=== PATIENT | female | born 1985 | race African-American/Black ===

== ENCOUNTER 2016-09-23 10:10 | Emergency (ER) | payer SELFPAY ==
[~2016-09-23] VITALS: Ht 167.6 cm; Wt 98.0 kg
[~2016-09-23 10:10] MED LIST: CYCL-36 PO; IBUP800 PO
[2016-09-23 10:13] VITALS: BP 134/79; PULSE 64; RESP 20; TEMP 98.4; O2SAT 99
--- NOTE | 2016-09-23 10:20 | PD ---
HPI Chief Complaint: Laceration/Skin Injury Time Seen by Provider: 10:20 Travel History International Travel<30 days: No Contact w/Intl Traveler<30days: No Traveled to known affect area: No History of Present Illness HPI 31 y/o female presents the emergency department with superficial laceration to the left dorsal lateral thumb over the DIP joint, as well as small superficial laceration to the distal left index finger. Patient also has a small burn to the dorsal left middle finger. She is here concerning the laceration to the left dorsal thumb, as it continues to ooze blood. Pain is minimal. There is no decrease in range of motion or strength or sensation. Patient is unsure of her last tetanus shot. This laceration occurred yesterday while she was cooking. She has no known drug allergies. PFSH Past Medical History Anemia: Yes Cardiovascular Problems: No Diminished Hearing: No GERD: Yes Hypertension: Yes (GESTATIONAL HYPERTENSION) Respiratory: No Thyroid Disease: No ?: Not : 1 Para: 1 Miscarriage: 0 Past Surgical History Gynecologic Surgery: Yes (iud placed/georgi) Pacemaker: No Tonsillectomy: Yes Other Surgery: Yes (SINUS SX) Social History Alcohol Use: Yes (occ wine) Tobacco Use: No Substance Use: No Allergies-Medications (Allergen,Severity, Reaction): Coded Allergies: No Known Allergies (Verified , 01/06/16) Reported Meds & Prescriptions Reported Meds & Active Scripts Active Reported Omeprazole 20 Mg Tab 20 Mg PO DAILY Hydrochlorothiazide 12.5 Mg Cap 12.5 Mg PO DAILY Review of Systems Except as stated in HPI: all other systems reviewed are Neg General / Constitutional: No: Fever Eyes: No: Visual changes HENT: No: Headaches Cardiovascular: No: Chest Pain or Discomfort Respiratory: No: Shortness of Breath Gastrointestinal: No: Abdominal Pain Genitourinary: No: Dysuria Musculoskeletal: No: Pain Skin: No Rash Neurologic: No: Weakness Psychiatric: No: Depression Endocrine: No: Polydipsia Hematologic/Lymphatic: No: Easy Bruising Physical Exam Narrative GENERAL: Patient is in no acute distress. SKIN: Warm and dry. Patient has a U-shaped flap-like laceration to the dorsal left thumb over the DIP joint which is well approximated and not bleeding currently. She also has a small 3 mL superficial lacerations to the distal left lateral index finger. Patient also has a small 0.5 cm oval burn to the base of the dorsal middle finger. HEAD: Atraumatic. Normocephalic. EYES: Pupils equal and round. No scleral icterus. No injection or drainage. ENT: No nasal bleeding or discharge. Mucous membranes pink and moist. Pharynx is clear. NECK: Trachea midline. Supple nontender. CARDIOVASCULAR: Regular rate and rhythm. RESPIRATORY: No accessory muscle use. Clear to auscultation. Breath sounds equal bilaterally. MUSCULOSKELETAL: Extremities without clubbing, cyanosis, or edema. No obvious deformities. NEUROLOGICAL: Awake and alert. No obvious cranial nerve deficits. Motor grossly within normal limits. Five out of 5 muscle strength in the arms and legs. Normal speech. PSYCHIATRIC: Appropriate mood and affect; insight and judgment normal. Data Data Last Documented VS Vital Signs Date Time Temp Pulse Resp B/P Pulse Ox O2 Delivery O2 Flow Rate FiO2 09/23/16 10:26 16 09/23/16 10:13 98.4 64 134/79 99 Room Air Orders Tetanus/Diphtheria Tox Adult (Tetanus/Di (09/23/16 10:30) MDM Medical Decision Making Medical Screen Exam Complete: Yes Emergency Medical Condition: Yes Differential Diagnosis Laceration. Burn. Need for tetanus. Narrative Course Wound is closed with Dermabond and dressing is placed for protection. Patient is given tetanus 0.5 mg IM. Wound care is discussed with the patient. Patient is to follow-up as needed. Diagnosis Primary Impression: Laceration of left thumb without complication Qualified Code: S61.012A - Laceration of left thumb without complication, initial encounter Additional Impression: Superficial burn of left middle finger Referrals: [facility] Patient Instructions: General Instructions, Tetanus Toxoid (By injection) Additional Instructions: Wound is closed with Dermabond and dressing is placed for protection. Patient is given tetanus 0.5 mg IM. Wound care is discussed with the patient. Patient is to follow-up as needed. Med/Other Pt SpecificInfo: No Meds Exist/No RX given Disposition: 01 DISCHARGE HOME Condition: Stable Armaan Eddy Sep 23, 2016 10:20
[2016-09-23] MEDS ORDERED: HYDR12.57 PO (10:27)
[2016-09-23] MEDS ORDERED: OMEP20TA PO (10:27)
[2016-09-23] MEDS ORDERED: TETANUS/DIPHTHERIA TOXOID ADULT 0.5 ML VIAL IM ONE (10:30)
== END 2016-09-23 10:53 | disposition home or self-care (01) ==
LOC: NEPD 10:10
DX: S61.012A Laceration without foreign body of left thumb without damage to nail, initial encounter (principal); T23.122A Burn of first degree of single left finger (nail) except thumb, initial encounter; D64.9 Anemia, unspecified; K21.9 Gastro-esophageal reflux disease without esophagitis; Y93.G3 Activity, cooking and baking; Z23 Encounter for immunization
CPT/HCPCS: 12001; 90471; 90714

== ENCOUNTER 2016-10-11 09:48 | Emergency (ER) | payer SELFPAY ==
[~2016-10-11] VITALS: Ht 167.6 cm; Wt 95.0 kg
[~2016-10-11 09:48] MED LIST changes: -CYCL-36 PO; +HYDR12.57 PO; -IBUP800 PO; +OMEP20TA PO
[2016-10-11 09:49] VITALS: BP 164/79; PULSE 82; RESP 20; TEMP 98.5; O2SAT 100
--- NOTE | 2016-10-11 10:24 | PD ---
HPI Chief Complaint: Cold / Flu Symptoms Time Seen by Provider: 10:24 Travel History International Travel<30 days: No Contact w/Intl Traveler<30days: No Traveled to known affect area: No History of Present Illness HPI 31-year-old female presents to the emergency Department with complaint of cough , nasal congestion 2 days. Yesterday she had development of chest tightness and shortness of breath. Reports she has history of pneumonia and is concerned that she may have pneumonia again. She denies fever, vomiting. Denies hemoptysis. Denies wheezing. Denies history of asthma. Says she did use her child's albuterol treatment last night with some relief of symptoms. Has also been taking Mucinex for symptom management. Has no other medical complaints. No known allergies. No other modifying factors or associated signs and symptoms. PFSH Past Medical History Anemia: Yes Cardiovascular Problems: Yes (HTN) Diminished Hearing: No GERD: Yes Hypertension: Yes Respiratory: No Thyroid Disease: No ?: Not : 1 Para: 1 Miscarriage: 0 Past Surgical History Gynecologic Surgery: Yes (iud placed/georgi) Pacemaker: No Tonsillectomy: Yes Other Surgery: Yes (SINUS SX) Social History Alcohol Use: Yes (occ wine) Tobacco Use: No Substance Use: No Allergies-Medications (Allergen,Severity, Reaction): Coded Allergies: No Known Allergies (Verified , 10/11/16) Reported Meds & Prescriptions Reported Meds & Active Scripts Active Proair Hfa 8.5 GM Inh (Albuterol Sulfate) 90 Mcg/Act Aer 2 Puff INH Q4-6H PRN 108 mcg/actuation Diflucan (Fluconazole) 150 Mg Tab 150 Mg PO ONCE Azithromycin 500 Mg Tab 500 Mg PO DAILY Reported Omeprazole 20 Mg Tab 20 Mg PO DAILY Hydrochlorothiazide 12.5 Mg Cap 12.5 Mg PO DAILY Review of Systems Except as stated in HPI: all other systems reviewed are Neg Physical Exam Narrative GENERAL: Well-nourished, well-developed female patient, in no acute distress; afebrile, nontoxic-appearing SKIN: Warm and dry. No rash. HEAD: Atraumatic. Normocephalic. EYES: Pupils equal and round. No scleral icterus. No injection or drainage. ENT: Mucosa pink and moist. No erythema or exudates. No uvular edema. No uvular , palatal, or tonsillar deviation. Airway patent. EARS: Bilateral pinnae and external canals appear within normal limits. Bilateral tympanic membranes without erythema, dullness or perforation. NECK: Trachea midline. No lymphadenopathy. CARDIOVASCULAR: Regular rate and rhythm. No murmur appreciated. RESPIRATORY: No accessory muscle use. Clear to auscultation. Breath sounds decreased to right middle, lower lobe. No retractions or tachypnea. Consistent dry cough. GASTROINTESTINAL: Abdomen soft, non-tender, nondistended. Hepatic and splenic margins not palpable. Bowel sounds are active 4 quadrants. MUSCULOSKELETAL: No obvious deformities. No clubbing. No cyanosis. No edema. NEUROLOGICAL: Awake and alert. Oriented 3. No obvious cranial nerve deficits. Motor grossly within normal limits. Normal speech. Moves all extremities. 5/5 strength to all extremities. PSYCHIATRIC: Appropriate mood and affect; insight and judgment normal. Data Data Last Documented VS Vital Signs Date Time Temp Pulse Resp B/P Pulse Ox O2 Delivery O2 Flow Rate FiO2 10/11/16 09:49 98.5 82 20 164/79 100 Room Air Orders Chest, Single Ap (10/11/16 10:13) Prednisone (Deltasone) (10/11/16 10:30) Albuterol Neb (Albuterol Neb) (10/11/16 10:30) MDM Medical Decision Making Medical Screen Exam Complete: Yes Emergency Medical Condition: Yes Medical Record Reviewed: Yes Differential Diagnosis Bronchitis, viral illness, pneumonia Narrative Course 31-year-old female with cough and cold symptoms 2 days. Patient is afebrile and nontoxic-appearing. She does have decreased lung sounds to the right lower lobes on auscultation of the lung sounds. She is in no acute distress and oxygen saturation is 100% on room air. No retractions or tachypnea. Patient does state she does have a history of pneumonia and her current symptoms are similar. Chest x-ray, albuterol nebulizer treatment, Deltasone ordered. 1100: Chest x-ray concludes mild right middle lobe infiltrate. I spoke with Dr. Marcano, my attending physician, and he agrees the patient is stable for outpatient treatment and follow-up. Azithromycin, albuterol inhaler prescribed for home. Instructed patient to follow up with primary care provider. Patient verbalizes understanding and agreement with treatment plan. Patient is medically cleared and stable for discharge. Discussed reasons to return to the emergency department. Patient agrees with treatment plan. The patients vital signs are stable and the patient is stable for outpatient follow-up and treatment. Patient discharged home, stable and in no acute distress. Diagnosis Primary Impression: Pneumonia Qualified Code: J18.1 - Pneumonia of right middle lobe due to infectious organism Referrals: Primary Care Physician Patient Instructions: Community Acquired Pneumonia (ED), General Instructions Departure Forms: Tests/Procedures, Work Release Enter return to work date: Oct 15, 2016 Additional Instructions: Antibiotics as prescribed and complete full course Ibuprofen or Tylenol as instructed and as needed for fever/pain [id number] cough and cold medications as directed and as needed for symptom management Get plenty of sleep/rest Drink plenty of fluids to prevent dehydration; popsicles and Gatorade Use an air humidifier/turn off ceiling fans Follow-up with primary care provider Return immediately to the emergency department with worsening of symptoms Med/Other Pt SpecificInfo: Prescription(s) given Scripts Albuterol 8.5 GM Inh (Proair Hfa 8.5 GM Inh)90 Mcg/Act Aer2 Puff INH Q4-6H PRN ( SOB/WHEEZING) #1 INHALER Ref 0 108 mcg/actuation Prov:Adela Castillo 10/11/16 Fluconazole (Diflucan)150 Mg [id number] Mg PO ONCE #1 TAB Ref 1 Prov:Adela Castillo 10/11/16 Azithromycin 500 Mg [id number] Mg PO DAILY #5 TAB Ref 0 Prov:Adela Castillo 10/11/16 Disposition: 01 DISCHARGE HOME Condition: Stable Adela Castillo Oct 11, 2016 10:24
[2016-10-11] MEDS ORDERED: RESP: ALBUTEROL 2.5 MG/3 ML NEB (SCH) INH ONE (10:30)
[2016-10-11] MEDS ORDERED: predniSONE 20 MG TAB PO ONE (10:30)
--- NOTE | 2016-10-11 10:52 | RADRPT ---
EXAM DATE/TIME: 10/11/2016 10:45 [facility] COMPARISON: CHEST PA & LAT, May 11, 2015, 13:17. INDICATIONS : Cough, short of breath, chest pain, cold symptoms MEDICAL HISTORY : Gastroesophageal reflux disease. high blood pressure SURGICAL HISTORY : None. ENCOUNTER: Initial ACUITY: 3 days PAIN SCORE: 8/10 LOCATION: Bilateral chest FINDINGS: A single view of the chest demonstrates a mild infiltrate in the right middle lobe. Otherwise, the ben ngs remain grossly clear and stable compared to the prior examination. The heart size is within roberto l limits. There are no pleural effusions or pulmonary edema. The bony structures are grossly intact.. CONCLUSION: Mild right middle lobe infiltrate. Mikey Moore MD on October 11, 2016 at 10:48 Board Certified Radiologist. This report was verified electronically.
[2016-10-11] MEDS ORDERED: DIFL150T PO (11:07)
[2016-10-11] MEDS ORDERED: ALBUAER3 INH (11:07)
[2016-10-11] MEDS ORDERED: AZIT500T2 PO (11:07)
== END 2016-10-11 11:42 | disposition home or self-care (01) ==
LOC: NEPK 09:48
DX: J18.1 Lobar pneumonia, unspecified organism (principal); I10 Essential (primary) hypertension
CPT/HCPCS: 71010; 94664; 99284; J7512; J7613

== ENCOUNTER 2016-10-15 20:03 | Observation (INO) | payer SELFPAY ==
[~2016-10-15] VITALS: Ht 167.6 cm; Wt 96.0 kg
[~2016-10-15 20:03] MED LIST changes: +ALBUAER3 INH; +AZIT500T2 PO; +DIFL150T PO
[2016-10-15 20:04] VITALS: BP 144/74; PULSE 75; RESP 16; TEMP 98.8; O2SAT 99
[2016-10-15] MEDS ORDERED: SODIUM CHLORIDE 0.9% FLUSH 10 ML FLUSH IVF PRN (23:45)
[2016-10-16] VITALS (8 sets, daily range): BP systolic 116–137; BP diastolic 68–80; PULSE 54–71; RESP 16–20; TEMP 97.7–98; O2SAT 66–100
--- NOTE | 2016-10-16 00:05 | PD ---
HPI Chief Complaint: Cold / Flu Symptoms Time Seen by Provider: 23:32 Travel History International Travel<30 days: No Contact w/Intl Traveler<30days: No Traveled to known affect area: No History of Present Illness HPI 31yo F with PMH of HTN presents to the ED with c/o cough, nasal congestion and chest pain that has not resolved since taking azithromycin. Pt describes the chest pain as a pressure on her chest. Feels that she cant really breath. Describes it as an elephant sitting on her chest. States her father of heart attack at age 46. States she had seen a firebrick layer helper before but has not had any stress test recently. Denies any fever, n/v, abdominal pain, focal weakness or numbness. Pt was seen on 10/11/16 and diagnosed with pneumonia and discharged with azithromycin, albuterol and fluconazole. Pt had CXR that showed mild right middle lobe infiltrate. PFSH Past Medical History Anemia: Yes Cardiovascular Problems: Yes (HTN) Diminished Hearing: No GERD: Yes Hypertension: Yes Respiratory: No Thyroid Disease: No Tetanus Vaccination: < 5 Years Influenza Vaccination: No ?: Not LMP: 04/2016 : 2 Para: 2 Miscarriage: 0 Past Surgical History Surgical History: No Previous Surgery Gynecologic Surgery: Yes (iud placed/georgi) Pacemaker: No Tonsillectomy: Yes Other Surgery: Yes (SINUS SX) Social History Alcohol Use: Yes (social) Tobacco Use: No Substance Use: No Allergies-Medications (Allergen,Severity, Reaction): Coded Allergies: No Known Allergies (Verified , 10/15/16) Reported Meds & Prescriptions Reported Meds & Active Scripts Active Proair Hfa 8.5 GM Inh (Albuterol Sulfate) 90 Mcg/Act Aer 2 Puff INH Q4-6H PRN 108 mcg/actuation Azithromycin 500 Mg Tab 500 Mg PO DAILY Reported Omeprazole 20 Mg Tab 20 Mg PO DAILY Hydrochlorothiazide 12.5 Mg Cap 12.5 Mg PO DAILY Review of Systems Except as stated in HPI: all other systems reviewed are Neg Physical Exam Narrative GEN: 31 yo F in mild distress. SKIN: Warm and dry. EYES: Pupils reactive and equal. ENT: Throat: Uvula midline. NECK: No JVD. Trachea midline. CV: S1, S2. Lungs: CTA B/L, equal breath sounds. Saturating at 100% on room air. Abd: soft, NT/ND. No rebound tenderness or guarding. EXT: No calf tenderness. No edema. Neuro: No focal neurologic deficits. Data Data Last Documented VS Vital Signs Date Time Temp Pulse Resp B/P Pulse Ox O2 Delivery O2 Flow Rate FiO2 10/16/16 01:20 56 20 137/80 100 Nasal Cannula 2 10/15/16 20:04 98.8 Orders Electrocardiogram (10/15/16 23:44) Basic Metabolic Panel (Bmp) (10/15/16 23:44) Ckmb (Isoenzyme) Profile (10/15/16 23:44) Complete Blood Count With Diff (10/15/16 23:44) D-Dimer (10/15/16:44) Magnesium (Mg) (10/15/16:44) Prothrombin Time / Inr (Pt) (10/15/16:44) Act Partial Throm Time (Ptt) (10/15/16:44) Troponin I (10/15/16 23:44) Chest, Single Ap (10/15/16 23:44) Ecg Monitoring (10/15/16:44) Bilateral Bp Monitoring (10/15/16 23:44) Iv Access Insert/Monitor (10/15/16 23:44) Oximetry (10/15/16 23:44) Oxygen Administration (10/15/16 23:44) Sodium Chloride 0.9% Flush (Ns Flush) (10/15/16 23:45) Guaifen-Cod 200-20 Mg/10ml Liq (Robituss (10/16/16 00:15) Blood Culture (10/16/16 00:05) Lactic Acid Sepsis Protocol (10/16/16 00:05) Bhcg Screen Qualitative (10/16/16 00:57) Ed Urine Pregnancytest Poc (10/16/16 01:15) Sodium Chlor 0.9% 1000 Ml Inj (Ns 1000 M (10/16/16 01:30) Ct Pulmonary Angiogram (10/16/16 01:22) Electrocardiogram (10/16/16 01:55) Troponin I (10/16/16 01:55) Iohexol 350 Inj (Omnipaque 350 Inj) (10/16/16 02:30) Admit Order (Ed Use Only) (10/16/16 02:47) Labs Laboratory Tests Test 10/15/16 10/16/16 23:50 00:25 White Blood Count 10.1 TH/MM3 Red Blood Count 4.79 MIL/MM3 Hemoglobin 12.4 GM/DL Hematocrit 35.1 % Mean Corpuscular Volume 73.4 FL Mean Corpuscular Hemoglobin 25.8 PG Mean Corpuscular Hemoglobin 35.2 % Concent Red Cell Distribution Width 14.3 % Platelet Count 322 TH/MM3 Mean Platelet Volume 9.0 FL Neutrophils (%) (Auto) 47.8 % Lymphocytes (%) (Auto) 39.8 % Monocytes (%) (Auto) 6.1 % Eosinophils (%) (Auto) 5.7 % Basophils (%) (Auto) 0.6 % Neutrophils # (Auto) 4.8 TH/MM3 Lymphocytes # (Auto) 4.0 TH/MM3 Monocytes # (Auto) 0.6 TH/MM3 Eosinophils # (Auto) 0.6 TH/MM3 Basophils # (Auto) 0.1 TH/MM3 CBC Comment DIFF FINAL Differential Comment Prothrombin Time 10.5 SEC Prothromb Time International 1.0 RATIO Ratio Activated Partial 29.4 SEC Thromboplast Time D-Dimer Quantitative (PE/DVT) 0.55 MG/L FEU Sodium Level 140 MEQ/L Potassium Level 4.0 MEQ/L Chloride Level 106 MEQ/L Carbon Dioxide Level 28.7 MEQ/L Anion Gap 5 MEQ/L Blood Urea Nitrogen 14 MG/DL Creatinine 0.63 MG/DL Estimat Glomerular Filtration 135 ML/MIN Rate Random Glucose 92 MG/DL Calcium Level 8.0 MG/DL Magnesium Level 1.9 MG/DL Total Creatine Kinase 75 U/L Troponin I LESS THAN 0.02 NG/ML Beta HCG, Qualitative LESS THAN 1 MIU/ML Lactic Acid Level 0.7 mmol/L [facility] Medical Decision Making Medical Screen Exam Complete: Yes Emergency Medical Condition: Yes Interpretation(s) EKG: Sinus bradycardia at 54bpm. Normal axis. TWI V2. Differential Diagnosis Pneumonia vs. Bronchitis vs. ACS vs. PE vs. URI Narrative Course 31yo F with coughing and congestion. Pt also has pressure like chest pain that is worst when she lays down. Labs reviewed, no leukocytosis. Troponin negative. D-dimer is elevated at 0.55, so will obtain CT angio. CXR negative for acute cardiopulmonary disease. Sign out to next team to follow up CT angio and if that is negative, to admit to chest pain center for serial EKG and cardiac enzyme. Diagnosis Primary Impression: Chest pain Qualified Code: R07.9 - Chest pain, unspecified type Admitting Information Admitting Physician Requests: Nieves Santamaria DO Oct 16, 2016 00:05
[2016-10-16] MEDS ORDERED: guaiFENesin/CODEINE SYRUP 200 MG/20 MG/10 ML CUP PO ONE (00:15)
--- NOTE | 2016-10-16 00:17 | RADRPT ---
EXAM DATE/TIME: 10/15/2016 23:51 [facility] COMPARISON: CHEST SINGLE AP, October 11, 2016, 10:45. INDICATIONS : Chest pain, shortness of breath, patient claims she was diagnosed on10/11/16 with pneumonia and feels s he has not gotten any better. MEDICAL HISTORY : None. SURGICAL HISTORY : None. ENCOUNTER: Subsequent ACUITY: 4 - 6 days PAIN SCORE: 0/10 LOCATION: Bilateral chest FINDINGS: A single view of the chest demonstrates the lungs to be symmetrically aerated without evidence of mas s, infiltrate or effusion. The cardiomediastinal contours are unremarkable. Osseous structures are intact. CONCLUSION: No evidence of acute cardiopulmonary disease. Alex Aldridge MD on October 16, 2016 at 0:15 Board Certified Radiologist. This report was verified electronically.
[2016-10-16 00:33] LABS: AUTOMATED NEUTROPHIL # 4.8 TH/MM3 (1.8-7.7); BASOPHIL # 0.1 TH/MM3 (0-0.2); BASOPHIL % 0.6 % (0.0-2.0); EOSINOPHIL # 0.6 TH/MM3 (0-0.4); EOSINOPHIL % 5.7 % (0.0-4.0); HEMATOCRIT 35.1 % (35.0-46.0); HEMO FLAGS DIFF FINAL; LYMPH % 39.8 % (9.0-44.0); MEAN CELL VOLUME 73.4 FL (80.0-100.0); MEAN CORPUSCULAR HEMOGLOBIN 25.8 PG (27.0-34.0); MEAN CORPUSCULAR HGB CONC 35.2 % (32.0-36.0); MONO % 6.1 % (0.0-8.0); NEUT % 47.8 % (16.0-70.0); PLATELET COUNT 322 TH/MM3 (150-450); RED BLOOD COUNT 4.79 MIL/MM3 (4.00-5.30); RED CELL DISTRIBUTION WIDTH 14.3 % (11.6-17.2); WHITE BLOOD COUNT 10.1 TH/MM3 (4.0-11.0)
[2016-10-16 00:38] LABS: ANION GAP 5 MEQ/L (5-15); BICARBONATE 28.7 MEQ/L (21.0-32.0); BLOOD UREA NITROGEN 14 MG/DL (7-18); CHLORIDE 106 MEQ/L (98-107); CREATINE KINASE 75 U/L (26-192); GLOMERULAR FILTRATION RATE 135 ML/MIN (>89); MAGNESIUM 1.9 MG/DL (1.5-2.5); SODIUM (NA) 140 MEQ/L (136-145)
[2016-10-16 00:39] LABS: APTT (PATIENT) 29.4 SEC (24.3-30.1); PROTHROMBIN TIME - PATIENT 10.5 SEC (9.8-11.6)
[2016-10-16] MEDS ORDERED: SODIUM CHLOR 0.9% 1000 ML INJ 1,000 ML IV ONE (01:30)
[2016-10-16] MEDS ORDERED: IOHEXOL 350 MG/ML 10 ML VIAL (for RAD DIAG) IV ONE (02:30)
--- NOTE | 2016-10-16 02:39 | RADRPT ---
EXAM DATE/TIME: 10/16/2016 02:13 [facility] COMPARISON: No previous studies available for comparison. INDICATIONS : Chest pain with elevated D-Dimer. IV CONTRAST: 70 cc Omnipaque 350 (iohexol) IV RADIATION DOSE: 13.38 CTDIvol (mGy) MEDICAL HISTORY : Cardiovascular disease. Hypertension. Gastroesophageal reflux disease. SURGICAL HISTORY : None. ENCOUNTER: Subsequent ACUITY: 4 - 6 days PAIN SCALE: 4/10 LOCATION: Bilateral chest TECHNIQUE: Volumetric scanning of the chest was performed using a pulmonary embolism protocol MIP images were re constructed. Using automated exposure control and adjustment of the mA and/or kV according to patien t size, radiation dose was kept as low as reasonably achievable to obtain optimal diagnostic quality images. DICOM format image data is available electronically for review and comparison. FINDINGS: PULMONARY ARTERIES: No filling defects are seen in the pulmonary arteries through the segmental level. LUNGS: There is no consolidation or pneumothorax . No concerning pulmonary nodule is visualized. PLEURAE: There is no pleural thickening or pleural effusion. MEDIASTINUM: There is good visualization of the great vessels of the middle mediastinum. No evidence of mediastin al or hilar adenopathy/mass. MUSCULOSKELETAL: Within normal limits for patient age. MISCELLANEOUS: The visualized upper abdominal organs demonstrate no acute abnormality. CONCLUSION: Normal CT pulmonary angiogram. No pulmonary embolus or other acute abnormality. Alex Aldridge MD on October 16, 2016 at 2:37 Board Certified Radiologist. This report was verified electronically.
--- NOTE | 2016-10-16 02:51 | PD ---
Physical Exam Date Seen by Provider: Oct 16, 2016 Time Seen by Provider: 02:49 Data Data Last Documented VS Vital Signs Date Time Temp Pulse Resp B/P Pulse Ox O2 Delivery O2 Flow Rate FiO2 10/16/16 01:20 56 20 137/80 100 Nasal Cannula 2 10/15/16 20:04 98.8 Orders Electrocardiogram (10/15/16 23:44) Basic Metabolic Panel (Bmp) (10/15/16 23:44) Ckmb (Isoenzyme) Profile (10/15/16 23:44) Complete Blood Count With Diff (10/15/16 23:44) D-Dimer (10/15/16 23:44) Magnesium (Mg) (10/15/16 23:44) Prothrombin Time / Inr (Pt) (10/15/16 23:44) Act Partial Throm Time (Ptt) (10/15/16 23:44) Troponin I (10/15/16 23:44) Chest, Single Ap (10/15/16 23:44) Ecg Monitoring (10/15/16 23:44) Bilateral Bp Monitoring (10/15/16 23:44) Iv Access Insert/Monitor (10/15/16 23:44) Oximetry (10/15/16 23:44) Oxygen Administration (10/15/16 23:44) Sodium Chloride 0.9% Flush (Ns Flush) (10/15/16 23:45) Guaifen-Cod 200-20 Mg/10ml Liq (Robituss (10/16/16 00:15) Blood Culture (10/16/16 00:05) Lactic Acid Sepsis Protocol (10/16/16 00:05) Bhcg Screen Qualitative (10/16/16 00:57) Ed Urine Pregnancytest Poc (10/16/16 01:15) Sodium Chlor 0.9% 1000 Ml Inj (Ns 1000 M (10/16/16 01:30) Ct Pulmonary Angiogram (10/16/16 01:22) Electrocardiogram (10/16/16 01:55) Troponin I (10/16/16 01:55) Iohexol 350 Inj (Omnipaque 350 Inj) (10/16/16 02:30) Admit Order (Ed Use Only) (10/16/16 02:47) Labs Laboratory Tests Test 10/15/16 10/16/16 23:50 00:25 White Blood Count 10.1 TH/MM3 Red Blood Count 4.79 MIL/MM3 Hemoglobin 12.4 GM/DL Hematocrit 35.1 % Mean Corpuscular Volume 73.4 FL Mean Corpuscular Hemoglobin 25.8 PG Mean Corpuscular Hemoglobin 35.2 % Concent Red Cell Distribution Width 14.3 % Platelet Count 322 TH/MM3 Mean Platelet Volume 9.0 FL Neutrophils (%) (Auto) 47.8 % Lymphocytes (%) (Auto) 39.8 % Monocytes (%) (Auto) 6.1 % Eosinophils (%) (Auto) 5.7 % Basophils (%) (Auto) 0.6 % Neutrophils # (Auto) 4.8 TH/MM3 Lymphocytes # (Auto) 4.0 TH/MM3 Monocytes # (Auto) 0.6 TH/MM3 Eosinophils # (Auto) 0.6 TH/MM3 Basophils # (Auto) 0.1 TH/MM3 CBC Comment DIFF FINAL Differential Comment Prothrombin Time 10.5 SEC Prothromb Time International 1.0 RATIO Ratio Activated Partial 29.4 SEC Thromboplast Time D-Dimer Quantitative (PE/DVT) 0.55 MG/L FEU Sodium Level 140 MEQ/L Potassium Level 4.0 MEQ/L Chloride Level 106 MEQ/L Carbon Dioxide Level 28.7 MEQ/L Anion Gap 5 MEQ/L Blood Urea Nitrogen 14 MG/DL Creatinine 0.63 MG/DL Estimat Glomerular Filtration 135 ML/MIN Rate Random Glucose 92 MG/DL Calcium Level 8.0 MG/DL Magnesium Level 1.9 MG/DL Total Creatine Kinase 75 U/L Troponin I LESS THAN 0.02 NG/ML Lactic Acid Level 0.7 mmol/L [facility] Medical Record Reviewed: Yes Supervised Visit with ODESSA: Yes Interpretation(s) CBC & BMP Diagram 10/15/16 23:50 D-dimer is mildly elevated. Troponin is negative. Last [address] Angiography 10/16/16 0122 Signed Impressions: Service Date/Time: Sunday, October 16, 2016 02:13 - CONCLUSION: Normal CT pulmonary angiogram. No pulmonary embolus or other acute abnormality. Alex Aldridge MD Chest X-Ray 10/15/16 [id number] Signed Impressions: Service Date/Time: Saturday, October 15, 2016 23:51 - CONCLUSION: No evidence of acute cardiopulmonary disease. Alex Aldridge MD Differential Diagnosis Differential diagnoses: Acute coronary syndrome, NM, PE, chest wall pain, pneumonia Narrative Course Patient's evaluation today revealed a positive d-dimer. CTA was negative for PE. With the patient's strong family history of early NM patient will be admitted to the chest pain center for further cardiac workup. We will repeat troponin and EKG at 3 hours post initial draw. This is chest pain Diagnosis Primary Impression: Chest pain Qualified Code: R07.9 - Chest pain, unspecified type Condition: Arpan Rodríguez Oct 16, 2016 02:51
[2016-10-16] MEDS ORDERED: ASPIRIN 81 MG CHEW TAB PO ONE (03:30)
[2016-10-16] MEDS ORDERED: SODIUM CHLORIDE 0.9% FLUSH 10 ML FLUSH IV FLUSH PRN (03:30)
[2016-10-16 07:50] LABS: CREATINE KINASE 57 U/L (26-192)
[2016-10-16] MEDS ORDERED: RESP: ALBUTEROL 2.5 MG/IPRATROPIUM 0.5 MG NEB (SCH) INH ONE (08:57)
[2016-10-16] MEDS ORDERED: PANTOPRAZOLE SOD 20 MG DELAYED RELEASE TAB PO SCH (09:00)
[2016-10-16] MEDS ORDERED: SODIUM CHLORIDE 0.9% FLUSH 10 ML FLUSH IV FLUSH SCH (09:00)
[2016-10-16] MEDS ORDERED: HYDROCHLOROTHIAZIDE 12.5 MG CAP PO SCH (09:00)
--- NOTE | 2016-10-16 09:49 | HHI.DCPOC ---
Discharge Care Plan Diagnosis: (1) Chest pain, atypical (2) Hypertension Goals to Promote Your Health * To prevent worsening of your condition and complications * To maintain your health at the optimal level Directions to Meet Your Goals Take your medications as prescribed Follow your dietary instruction Follow activity as directed Keep your appointments as scheduled Take your immunizations and boosters as scheduled If your symptoms worsen call your PCP, if no PCP go to Urgent Care Center or Emergency Room Smoking is Dangerous to Your Health. Avoid second hand smoke Call the 24-hour hour crisis hotline for domestic abuse at James Reyes Oct 16, 2016 09:49
--- NOTE | 2016-10-16 09:54 | PD.CARD.PN ---
Subjective Subjective Remarks CARDIOLOGY ATTENDING NOTE S: 31 YO woman who was seen in ED previously and diagnosed as pneumonia. Given Zpac but returns now with chest pain. This pain is constant, worse with coughing and motion, non radiating and very tender. Cough has been severe and not resolving. O: Obese Neck sore to touch at base but no mass and no bruits Chest very tender from neck down sternum, decreased BS but no RWR CV RSR no GRM Ext without CCE Lab negative for ACS EKG normal CXR and CT both negative A: CP secondary to cough with ongoing URI P: ETT not indicated and would be inappropriate with her SOB and cough Continue RX for URI with OP FU with PCP or Pulmonology Objective Vital Signs / I&O Vital Signs Date Time Temp Pulse Resp B/P Pulse Ox O2 Delivery O2 Flow Rate FiO2 10/16/16 09:17 96 21 10/16/16 07:46 98.0 62 16 116/71 100 10/16/16 06:19 99 Nasal Cannula 2.00 10/16/16 06:04 97.7 58 20 116/68 66 10/16/16 03:17 71 20 137/80 100 10/16/16 01:20 56 20 137/80 100 Nasal Cannula 2 10/16/16 00:15 100 Nasal Cannula 2 10/15/16 22:54 68 20 100 10/15/16 20:04 98.8 75 16 144/74 99 Room Air Laboratory Laboratory Tests Test 10/15/16 10/16/16 10/16/16 10/16/16 23:50 00:25 02:55 06:00 White Blood Count 10.1 TH/MM3 Red Blood Count 4.79 MIL/MM3 Hemoglobin 12.4 GM/DL Hematocrit 35.1 % Mean Corpuscular Volume 73.4 FL Mean Corpuscular Hemoglobin 25.8 PG Mean Corpuscular Hemoglobin 35.2 % Concent Red Cell Distribution Width 14.3 % Platelet Count 322 TH/MM3 Mean Platelet Volume 9.0 FL Neutrophils (%) (Auto) 47.8 % Lymphocytes (%) (Auto) 39.8 % Monocytes (%) (Auto) 6.1 % Eosinophils (%) (Auto) 5.7 % Basophils (%) (Auto) 0.6 % Neutrophils # (Auto) 4.8 TH/MM3 Lymphocytes # (Auto) 4.0 TH/MM3 Monocytes # (Auto) 0.6 TH/MM3 Eosinophils # (Auto) 0.6 TH/MM3 Basophils # (Auto) 0.1 TH/MM3 CBC Comment DIFF FINAL Differential Comment Prothrombin Time 10.5 SEC Prothromb Time International 1.0 RATIO Ratio Activated Partial 29.4 SEC Thromboplast Time D-Dimer Quantitative (PE/DVT) 0.55 MG/L FEU Sodium Level 140 MEQ/L Potassium Level 4.0 MEQ/L Chloride Level 106 MEQ/L Carbon Dioxide Level 28.7 MEQ/L Anion Gap 5 MEQ/L Blood Urea Nitrogen 14 MG/DL Creatinine 0.63 MG/DL Estimat Glomerular Filtration 135 ML/MIN Rate Random Glucose 92 MG/DL Calcium Level 8.0 MG/DL Magnesium Level 1.9 MG/DL Total Creatine Kinase 75 U/L 57 U/L Troponin I LESS THAN 0.02 LESS THAN 0.02 LESS THAN 0.02 NG/ML NG/ML NG/ML Beta HCG, Qualitative LESS THAN 1 MIU/ML Lactic Acid Level 0.7 mmol/L Ernesto Moran MD Oct 16, 2016 09:54
--- NOTE | 2016-10-16 10:13 | HHI.HP ---
[facility] Primary Care Physician Alex Delgado M.D. Chief Complaint Chest pain History of Present Illness This is a 31-year-old female that presents to the ED with history of recently having been diagnosed with pneumonia and taking Zithromax and albuterol inhaler with a complaint of chest discomfort. Patient states that she has been coughing for about a week and has had chest discomfort that same time. Describes a tightness. When she uses her son's nebulizer at home and does feel little better. She states the cough has improved after taking Zithromax in early little bit of productive mucus is occurring now. Denies fevers. She has had the cough really has not been short of breath. There've been no nausea or diaphoresis. Denies history of coronary disease. Patient is a nonsmoker. Review of Systems General: Patient denies fevers, chills recent, and recent travel HEENT: Patient denies headache, sore throat, difficulty swallowing. Cardiovascular: Has the chest discomfort as mentioned above. Denies sensation of heart beating rapidly or irregularly. No syncope. Denies diaphoresis. Respiratory: She has had a greenish color productive cough but states it has improved significantly since being on Zithromax. Denies shortness of breath or inspirational chest discomfort. Denies wheezing or hemoptysis. GI: Patient denies nausea, vomiting, diarrhea, abdominal pain, bloody stools. Musculoskeletal: Patient denies joint pain or edema. Denies calf pain or edema. Neurovascular: Patient denies numbness, tingling, weakness in extremities. Denies headache. Endocrine: Denies polyuria and polydipsia. Hematologic: Denies easy bruising. Skin: Denies rash or itching. Past Family Social History Allergies: Coded Allergies: No Known Allergies (Verified , 10/15/16) Past Medical History Recently diagnosed with a pneumonia October 11. Hypertension. Denies hyperlipidemia diabetes and known CAD. Denies being . Past Surgical History Not contributory. Reported Medications Reported Meds & Active Scripts Active Proair Hfa 8.5 GM Inh (Albuterol Sulfate) 90 Mcg/Act Aer 2 Puff INH Q4-6H PRN 108 mcg/actuation Azithromycin 500 Mg Tab 500 Mg PO DAILY Reported Omeprazole 20 Mg Tab 20 Mg PO DAILY Hydrochlorothiazide 12.5 Mg Cap 12.5 Mg PO DAILY Active Ordered Medications Current Medications Medications (Trade) Dose Ordered Sig/Ayanna Route Start Time Stop Time Status Last Admin (NS Flush) 2 ml UNSCH PRN IVF 10/15/16 23:45 (NS Flush) 2 ml UNSCH PRN IV FLUSH 10/16/16 03:30 (NS Flush) 2 ml BID IV FLUSH 10/16/16 09:00 10/16/16 09:00 (Microzide) 12.5 mg DAILY PO 10/16/16 09:00 10/16/16 09:50 (Protonix) 20 mg DAILY PO 10/16/16 09:00 10/16/16 09:51 Family History She states that her father at age 40 60 microinfarction. She believes her mother also has had MIs. Social History She is a lifetime nonsmoker. Denies alcohol or illicit drugs. She works as a college coach. Physical Exam Vital Signs Vital Signs Date Time Temp Pulse Resp B/P Pulse Ox O2 Delivery O2 Flow Rate FiO2 10/16/16 09:17 96 21 10/16/16 07:46 98.0 62 16 116/71 100 10/16/16 06:19 99 Nasal Cannula 2.00 10/16/16 06:04 97.7 58 20 116/68 66 10/16/16 03:17 71 20 137/80 100 10/16/16 01:20 56 20 137/80 100 Nasal Cannula 2 10/16/16 00:15 100 Nasal Cannula 2 10/15/16 22:54 68 20 100 10/15/16 20:04 98.8 75 16 144/74 99 Room Air Physical Exam GENERAL: This is a well-nourished, well-developed patient, in no apparent distress. Patient speaks in clear complete sentences. Patient is pleasant. HEENT: Head is atraumatic and normocephalic. Neck is supple without lymphadenopathy and trachea is midline. No JVD or carotid bruits. CARDIOVASCULAR: Regular rate and rhythm without murmurs, gallops, or rubs. RESPIRATORY: Clear to auscultation. Breath sounds equal bilaterally. No wheezes , rales, or rhonchi. Chest wall is very tender. This reproduces the discomfort she has been having. No use of accessory muscles. GASTROINTESTINAL: Abdomen is nontender, nondistended. Abdomen soft. No obvious pulsatile mass or bruit. No CVA tenderness. Strong femoral pulses bilaterally. Normal bowel sounds in all quadrants. MUSCULOSKELETAL: Patient is moving upper and lower extremities freely. No calf tenderness or edema, no Homans sign. Strong pulses in upper and lower extremities. NEUROLOGICAL: Patient is alert and oriented. Cranial nerves 2-12 are grossly intact. No focal deficits and speech is clear. SKIN: No rash and turgor is normal. Laboratory Laboratory Tests Test 10/15/16 10/16/16 10/16/16 10/16/16 23:50 00:25 02:55 06:00 White Blood Count 10.1 Red Blood Count 4.79 Hemoglobin 12.4 Hematocrit 35.1 Mean Corpuscular Volume 73.4 Mean Corpuscular Hemoglobin 25.8 Mean Corpuscular Hemoglobin 35.2 Concent Red Cell Distribution Width 14.3 Platelet Count 322 Mean Platelet Volume 9.0 Neutrophils (%) (Auto) 47.8 Lymphocytes (%) (Auto) 39.8 Monocytes (%) (Auto) 6.1 Eosinophils (%) (Auto) 5.7 Basophils (%) (Auto) 0.6 Neutrophils # (Auto) 4.8 Lymphocytes # (Auto) 4.0 Monocytes # (Auto) 0.6 Eosinophils # (Auto) 0.6 Basophils # (Auto) 0.1 CBC Comment DIFF FINAL Differential Comment Prothrombin Time 10.5 Prothromb Time International 1.0 Ratio Activated Partial 29.4 Thromboplast Time D-Dimer Quantitative (PE/DVT) 0.55 Sodium Level 140 Potassium Level 4.0 Chloride Level 106 Carbon Dioxide Level 28.7 Anion Gap 5 Blood Urea Nitrogen 14 Creatinine 0.63 Estimat Glomerular Filtration 135 Rate Random Glucose 92 Calcium Level 8.0 Magnesium Level 1.9 Total Creatine Kinase 75 57 Troponin I LESS THAN 0.02 LESS THAN 0.02 LESS THAN 0.02 Beta HCG, Qualitative LESS THAN 1 Lactic Acid Level 0.7 Date/Time Procedure Status Source Growth 10/16/16 00:25 Aerobic Blood Culture Received Blood Peripheral Pending 10/16/16 00:25 Anaerobic Blood Culture Received Blood Peripheral Pending Result Diagram: 10/15/16234910/15/160 Imaging Last [address] Angiography 10/16/16 0122 Signed Impressions: Service Date/Time: Sunday, October 16, 2016 02:13 - CONCLUSION: Normal CT pulmonary angiogram. No pulmonary embolus or other acute abnormality. Alex Aldridge MD Chest X-Ray 10/15/16 4554 Signed Impressions: Service Date/Time: Saturday, October 15, 2016 23:51 - CONCLUSION: No evidence of acute cardiopulmonary disease. Alex Aldridge MD Course EKGs have been sinus rhythm without significant ST segment depressions or elevations. Assessment and Plan Assessment and Plan * Atypical chest pain: Patient was recently diagnosed with pneumonia and is starting some discomforts with that. She has had serial cardiac enzymes and EKGs for ruling out purposes. She has been seen by Dr. Moran cardiology and the chest pain center and will be discharged home at this time with instructions to complete her medications and follow-up with her local primary care physician. * Hypertension: Continue current medication. Patient is stable at this time. She is agreeable to this plan. James Reyes Oct 16, 2016 10:13
[2016-10-16] MEDS ORDERED: RESP: ALBUTEROL 2.5 MG/IPRATROPIUM 0.5 MG NEB (PRN) INH (12:00)
--- NOTE | 2016-10-16 15:24 | EKG ---
Date Performed: 10/16/2016 Time Performed: 06:13:22 PTAGE: 31 years EKG: SINUS BRADYCARDIA BORDERLINE ECG NO SIG CHANGE PREVIOUS TRACING : 10/16/2016 02.50 DOCTOR: Ernesto Moran Interpretating Date/Time 10/16/2016 15:22:33
--- NOTE | 2016-10-16 15:25 | EKG ---
Date Performed: 10/16/2016 Time Performed: 02:50:04 PTAGE: 31 years EKG: SINUS BRADYCARDIA BORDERLINE ECG NO SIG CHANGE PREVIOUS TRACING : 10/16/2016 00.16 DOCTOR: Ernesto Moran Interpretating Date/Time 10/16/2016 15:25:10
--- NOTE | 2016-10-16 15:28 | EKG ---
Date Performed: 10/16/2016 Time Performed: 00:16:06 PTAGE: 31 years EKG: SINUS BRADYCARDIA BORDERLINE ECG NO SIG CHANGE PREVIOUS TRACING : 05/11/2015 13.49 DOCTOR: Ernesto Moran Interpretating Date/Time 10/16/2016 15:26:42
== END 2016-10-16 13:11 | disposition home or self-care (01) ==
LOC: NEPD 20:03 → NEDA 10-16 02:49 → NEPGCP 10-16 05:16
PROVIDERS: ADMIT Internal Medicine Cardiovascular Disease; ATTEND Internal Medicine Cardiovascular Disease
DX: R07.89 Other chest pain (principal); J06.9 Acute upper respiratory infection, unspecified; R05 Cough; K21.9 Gastro-esophageal reflux disease without esophagitis
CPT/HCPCS: 71010; 71275; 80048; 82550; 83605; 83735; 84484; 84703; 85025; 85379; 85610; 85730; 87040; 93005; 94664; 96360; 99285; G0378; J7030; Q9967

== ENCOUNTER 2016-11-18 19:00 | Emergency (ER) | payer MEDICAID ==
[~2016-11-18 19:00] MED LIST changes: -DIFL150T PO
[2016-11-18 19:03] VITALS: BP 138/81; PULSE 82; RESP 16; TEMP 98.6; O2SAT 99
--- NOTE | 2016-11-18 20:01 | PD ---
HPI Chief Complaint: Medical Clearance Time Seen by Provider: 19:58 Travel History International Travel<30 days: No Contact w/Intl Traveler<30days: No Traveled to known affect area: No History of Present Illness HPI 31-year-old black female presents emergency Department with complaints of a constricting ring on her left ring finger. She states that she had put her wedding ring back on that she has not had onset and time yesterday. She states that she's not been able to remove the ring. Her fingers becoming very swollen and tender. She denies any numbness or tingling. No trauma. PFSH Past Medical History Anemia: Yes Cardiovascular Problems: Yes Diminished Hearing: No GERD: Yes Hypertension: Yes Respiratory: No Thyroid Disease: No : 2 Para: 2 Miscarriage: 0 Past Surgical History Gynecologic Surgery: Yes (iud placed/georgi) Pacemaker: No Tonsillectomy: Yes Other Surgery: Yes (SINUS SX) Social History Alcohol Use: Yes (social) Tobacco Use: No Substance Use: No Allergies-Medications (Allergen,Severity, Reaction): Coded Allergies: No Known Allergies (Verified , 11/18/16) Reported Meds & Prescriptions Reported Meds & Active Scripts Active Reported Omeprazole 20 Mg Tab 20 Mg PO DAILY Hydrochlorothiazide 12.5 Mg Cap 12.5 Mg PO DAILY Review of Systems Except as stated in HPI: all other systems reviewed are Neg Physical Exam Narrative GENERAL: This is a well-nourished, well-developed patient, in no apparent distress. SKIN: No rashes, ecchymoses or lesions. Warm and dry. HEAD: Atraumatic. Normocephalic. EYES: PERRL, EOMI, no discharge or injection. No scleral icterus. EARS: Clear NOSE: Nasal turbinates appear normal. THROAT: Mucosa pink and moist. Airway patent. NECK: Trachea midline. supple, moves head freely. LUNGS: Clear to auscultation. CV: Regular in rhythm. ABDOMEN: Soft nontender. EXT: No clubbing cyanosis or edema. Patient has a constricting band (wedding ring) around her left ring finger. The skin is intact. Data Data Last Documented VS Vital Signs Date Time Temp Pulse Resp B/P Pulse Ox O2 Delivery O2 Flow Rate FiO2 11/18/16 19:03 98.6 82 16 138/81 99 Room Air MDM Medical Decision Making Medical Screen Exam Complete: Yes Emergency Medical Condition: Yes Medical Record Reviewed: Yes Differential Diagnosis Differential diagnoses: Constricting band, sprain, strain Narrative Course The patient's ring is removed using a elastic tourniquet. Procedures Procedure Narrative Ring removal: The patient's left ring finger is wrapped tightly using a rubber band tourniquet. This has has exsanguinated the blood from the finger. The ring is then removed without complication. The skin is intact. Patient has tolerated procedure well. Diagnosis Primary Impression: ring removal left ring finger Patient Instructions: General Instructions Additional Instructions: Rest. Elevation. Ice. Did not place ring back on until it is resized. Return to the ER for any problems. Med/Other Pt SpecificInfo: No Meds Exist/No RX given Disposition: 01 DISCHARGE HOME Condition: Arpan Rodríguez Nov 18, 2016 20:01
== END 2016-11-18 20:32 | disposition home or self-care (01) ==
LOC: NEPD 19:00
DX: S60.455A Superficial foreign body of left ring finger, initial encounter (principal); X58.XXXA Exposure to other specified factors, initial encounter
CPT/HCPCS: 99281